=== PATIENT | female | born 1975 | race Caucasian/White ===

== ENCOUNTER → 2016-08-26 | Outpatient (CLI) | payer MEDICARE, OTHER ==
[~2016-08-26] MED LIST: BENTYL20 MG PO; LYRICA100 MG PO; NOVOLOG100 UNIT/1; PHENERGAN25 MG PO; PREVACID PO; ZANAFLEX2 MG PO; ZOLOFT100 MG PO; [UNRECOGNIZED DRUG - OTHER] PO
== END | disposition home or self-care (01) ==
LOC: CSSDAY 13:30
DX: K50.90 Crohn's disease, unspecified, without complications (principal); Z79.899 Other long term (current) drug therapy
CPT/HCPCS: 96365; Q9989